=== PATIENT | male | born 1945 | race Caucasian/White ===

== ENCOUNTER 2017-07-29 17:06 | Inpatient (IN) | payer MEDICARE, OTHER ==
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
--- NOTE | ~2017-07-29 | PN ---
PATIENT:LOY SOLITARIO MEDICAL RECORD: [id number] LOCATION:[facility] ADMISSION DATE: 07/29/17 PROGRESS NOTE DATE OF SERVICE: 07/31/2017 SUBJECTIVE: No new complaint. OBJECTIVE: Telephone conversation was held with Mr. Solitario's , Latoya. Mr. Solitario's course in the hospital and current treatment were reviewed for her. She had raised an objection to an increase in the dose of Aricept due to the fact that apparently he had exhibited some gastritis when on the higher dose in the past. It was further discussed with the , the possibility of adding in Namenda as an adjunctive treatment in order to perhaps slightly improve the chance of some measurable results in his cognitive status. The was agreeable to this. The further mentioned that she was very anxious to get the patient admitted to a jail near her and was going to request that the jail come and assess the patient. We later received word that representatives from the jail will be here tomorrow morning. On exam, the patient's mood is slightly anxious. Affect is distant, but pleasant. Speech tends to be terse. Content of thought is negative for overt psychosis. On sensorium testing, the patient is oriented only to person. He shows global memory impairment. ASSESSMENT: No change in diagnosis. PLAN: 1. Medication changes as described above. 2. Continue supportive therapy. TRANSINT:[id number] Voice Confirmation ID: [id number] DOCUMENT ID: [id number] KODI ROMAN III, MD at 1045 CC: [id number] DICTATION DATE: 07/31/17 112 THEATRICAL TROUPER: 07/31/17 1334 ADM IN [facility] [address] [id number]
--- NOTE | ~2017-07-29 | PN ---
PATIENT:LOY HERNANDEZ MEDICAL RECORD: [id number] LOCATION:[facility] ADMISSION DATE: 07/29/17 PROGRESS NOTE DATE OF SERVICE: 08/01/2017 SUBJECTIVE: No new complaint. OBJECTIVE: The patient is being assessed for possible transfer [facility] in the near future. On the unit, he has been stable, tolerating medications without difficulty. On interview, mood is euthymic. Affect is pleasant. Speech is terse and characterized by significant latency and word finding pauses. Content of thought is negative for overt psychosis. Sensorium is unchanged. ASSESSMENT: No change in diagnosis. PLAN: 1. Maintain current medications. 2. Continue supportive therapy. TRANSINT:[id number] Voice Confirmation ID: [id number] DOCUMENT ID: [id number] KODI ROMAN III, MD at 0510 CC: [id number] DICTATION DATE: 08/01/17 1150 PANTOGRAPH II ENGRAVER: 08/01/17 1220 ADM IN [place] [id number] [place] [id number]
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
[2017-07-29 17:58] LABS: BASOPHILS 0.3 % (0-2); EOSINOPHILS 2.2 % (0-7); HEMATOCRIT 40.2 % (42.0-54.0); HEMOGLOBIN 13.6 g/dL (13.5-17.5); IMMATURE GRANULOCYTES 0.2 % (0-5); LYMPHOCYTES 20.4 % (15-50); MCH 31.3 pg (26.0-34.0); MCHC 33.8 g/dL (31.0-37.0); MCV 92.4 fL (80.0-100.0); MEAN PLATELET VOLUME 10.9 fL (7.4-10.4); NEUTROPHILS 65.9 % (40-80); PLATELET COUNT 129 10x3/uL (130-400); RBC 4.35 10x6/uL (4.20-6.10); RDW 13.1 % (11.5-14.5); WBC 5.8 10x3/uL (4.8-10.8)
[2017-07-29 18:21] LABS: ALBUMIN 3.7 g/dL (3.4-5.0); ANION GAP 12.9 mmol/L (8-16); BILIRUBIN - TOTAL 0.51 mg/dL (0.2-1.3); CALCIUM 8.5 mg/dL (8.5-10.1); CARBON DIOXIDE 28.1 mmol/L (21.0-32.0); CREATININE - SERUM 1.2 mg/dL (0.6-1.3); PROTEIN - SERUM 6.7 g/dL (6.4-8.2)
[2017-07-29 21:57] VITALS: BP 142/82; BMI 27.5
[2017-07-30] MEDS ORDERED: ARICEPT5 MG PO (00:21)
[2017-07-30 06:55] LABS: BASOPHILS 0.3 % (0-2); EOSINOPHILS 2.8 % (0-7); HEMATOCRIT 43.2 % (42.0-54.0); HEMOGLOBIN 14.4 g/dL (13.5-17.5); IMMATURE GRANULOCYTES 0.3 % (0-5); LYMPHOCYTES 27.1 % (15-50); MCH 31.1 pg (26.0-34.0); MCHC 33.3 g/dL (31.0-37.0); MCV 93.3 fL (80.0-100.0); MEAN PLATELET VOLUME 10.9 fL (7.4-10.4); MONOCYTES 14.1 % (2-11); NEUTROPHILS 55.4 % (40-80); PLATELET COUNT 144 10x3/uL (130-400); RBC 4.63 10x6/uL (4.20-6.10); RDW 13.4 % (11.5-14.5); WBC 6.4 10x3/uL (4.8-10.8)
[2017-07-30 07:15] LABS: HEMOGLOBIN A1C 5.1 % (4.8-6.0)
[2017-07-30 07:22] LABS: ALBUMIN 4.1 g/dL (3.4-5.0); BILIRUBIN - TOTAL 0.93 mg/dL (0.2-1.3); CALCIUM 8.7 mg/dL (8.5-10.1); CARBON DIOXIDE 30.9 mmol/L (21.0-32.0); CHOL - HDL RATIO 3.5 ratio (2.3-4.9); CREATININE - SERUM 1.1 mg/dL (0.6-1.3); LDL-HDL RATIO 2.3 ratio (1.5-3.5); POTASSIUM - SERUM 3.9 mmol/L (3.5-5.1); PROTEIN - SERUM 7.3 g/dL (6.4-8.2); THYROID STIMULATING HORMONE 2.87 uIU/mL (0.36-3.74)
[2017-07-30 08:00] VITALS: BP 92/53
[2017-07-30 10:53] VITALS: Wt 75.0 kg
[2017-07-30] MEDS ORDERED: BONIVA150 MG PO (11:13)
[2017-07-30] MEDS ORDERED: LEXAPRO5 MG PO (11:13)
[2017-07-30 21:23] VITALS: BP 122/65
[2017-07-31 07:26] LABS: FOLATE (FOLIC ACID) - SERUM 17.1 ng/mL (>3.0)
[2017-07-31 08:00] VITALS: BP 88/55
[2017-07-31 08:21] LABS: RAPID PLASMA REAGIN Non Reactive (Non Reactive); VITAMIN D 25 HYDROXY 38.3 ng/mL (30.0-100.0)
[2017-07-31 19:30] VITALS: BP 119/70
[2017-08-01 10:00] VITALS: BP 112/62
[2017-08-01 17:41] LABS: APPEARANCE CLEAR (CLEAR); BILIRUBIN NEGATIVE (NEGATIVE); COLOR YELLOW (YELLOW); GLUCOSE NEGATIVE (NEGATIVE); KETONE NEGATIVE (NEGATIVE); NITRITE NEGATIVE (NEGATIVE); PROTEIN NEGATIVE (NEGATIVE); UROBILINOGEN NORMAL (NORMAL)
[2017-08-01 17:42] LABS: BACTERIA FEW /hpf (NONE SEEN)
[2017-08-01 19:43] VITALS: BP 147/82
[2017-08-02 09:49] VITALS: BP 136/78
[2017-08-02] MEDS ORDERED: NAMENDA5 MG PO (10:38)
== END 2017-08-02 13:38 | disposition home or self-care (01) | DRG 57 ==
LOC: D.ER 17:06 → D.PSYCH 20:55
PROVIDERS: Physician Assistant Medical; Psychiatry & Neurology Psychiatry
DX: G30.9 Alzheimer's disease, unspecified (principal); F02.81 Dementia in other diseases classified elsewhere, unspecified severity, with behavioral disturbance; I10 Essential (primary) hypertension; J44.9 Chronic obstructive pulmonary disease, unspecified